=== PATIENT | female | born 1980 | race Caucasian/White ===

== ENCOUNTER → 2021-05-02 15:40 | Outpatient (CLI) | payer OTHER, MEDICAID, SELFPAY ==
[2021-05-02 17:19] LABS: COVID19 -Nasal RAPID Negative (Negative)
== END ==
PROVIDERS: PCP Nurse Practitioner Family; Visit Provider Obstetrics & Gynecology
DX: Z01.812 Encounter for preprocedural laboratory examination (principal); Z20.822 Contact with and (suspected) exposure to COVID-19
CPT/HCPCS: 87635; C9803

== ENCOUNTER 2021-05-03 06:35 | Day surgery (SDC) | payer OTHER, MEDICAID, SELFPAY ==
[2021-04-25 13:52] VITALS: BMI 30.5
[2021-05-03] VITALS (18 sets, daily range): BP systolic 120–146; BP diastolic 63–84; PULSE 62–124; RESP 15–28; TEMP 35.9–37.2; O2SAT 96–100; BMI 30.5
--- NOTE | 2021-05-03 | PATH_ITS ---
[facility] Accession Number: [id number] . 01 Material submitted: . uterus - UTERUS, BILATERAL OVARIES AND EPIPLOIC APPENDICES . 01 Clinical history: . OPB . 02 Diagnosis: Uterus, Bilateral Ovaries and Epiploic Appendices, Laparoscopic Supracervical Hysterectomy, Bilateral Oophorectomy, and Removal of Epiploic Appendices (Weight 54 grams): Secretory endometrium; negative for glandular hyperplasia, cytologic atypia, or malignancy. Myometrium involved by adenomyosis. Uterine serosa with no significant histomorphologic abnormality. Ovaries with patchy stromal thecosis, multiple cystic follicles, and with a benign hemorrhagic corpus luteum cyst (2-15 mm). 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 [facility] 05/06/2021 1622 Local . 02 Electronically signed: . Silvana Hankins MD, Pathologist NPI- [id number] . 01 Gross description: . The specimen is received in formalin, labeled uterus, bilateral ovaries and epiploic appendices and consists of a fragmented uterus weighing 54-gram and measures 11.0 x 9.0 x 6.5 cm in aggregate. A cervix is not identified. The serosa is meeks-pink and smooth. Sectioning reveals a meeks-pink granular endometrium measuring 0.1 cm in thickness. The myometrium is meeks-pink and diffusely trabeculated, measuring up to 2.2 cm in thickness. Also received are two detached ovaries weighing 7 grams, 2.5 x 2.0 x 1.2 cm and 10 grams, 3.6 x 3.0 x 2.0 cm. The external surface is meeks and smooth to cerebriform. Sectioning reveals multiple meeks smooth-walled cysts ranging from 0.2-1.5 cm. No papillary excrescences are identified. Additionally, there are five meeks to meeks-pink cystic nodules ranging from 0.6-1.9 cm. Company [employer] sections are submitted. . A1-A4: Uterus. A5: Smaller ovary, unit support representative section. A6-A7: Larger ovary, unit support representative sections. A8: Company Driver nodules. (EA:[id number]) /MRV 05/04/2021 1148 Local . 02 Pathologist provided ICD-10: N80.0 . 02 CPT . 779205 Performed at: 01 [facility] [address] [place] [address], [place], [place] [id number] MD Devonte Blake MD Phone: [phone] Performed at: 02 [facility] [address] [place] [id number] MD Jes Hoover MD Phone: [phone]
[2021-05-03] MEDS: LACTATED RINGERS 1,000 ML 42 ML IV ×2 (06:55→09:59)
--- NOTE | 2021-05-03 07:39 | PM.PREOP ---
Pre-operative Note COVID-19 COVID-19 status: Negative Result date/Date tested (Pos, Neg/Pending): 05/02/21 Interval Note History & Physical reviewed/Exam performed by Physician: Yes Changes to H&P: No H&P completed within 30 days and has changed as indicated here:: 04/20/21
[2021-05-03] MEDS: LACTATED RINGERS 1,000 ML 100 ML IV ×4 (07:47→20:30)
[2021-05-03] MEDS: CEFAZOLIN 1 GM VIAL 2 GM IV (08:00)
--- NOTE | 2021-05-03 08:23 | SUR.OPER ---
Lithotomy on padded OR bed. [place] Pad Positioner under torso. Head on gel and foam donut, arms padded and tucked at sides. Legs secured in padded yellow fins stirrups.
[2021-05-03] MEDS: BUPIVACAINE 0.25% W/ EPI 30 ML VIAL INJ (08:30)
[2021-05-03 09:17] LABS: Estradiol, Total 56.8 pg/mL
--- NOTE | 2021-05-03 09:30 | P.OP_ITS ---
Operative Date/Time/Diagnoses Date of procedure: 05/03/21 Time of procedure: 09:31 Post-op diagnosis: same Procedure & Clinicians Procedure: Procedures Operation Date: 05/03/21 07:45 Actual Procedure Side Surgeon p Laparoscopic Supracervical Hysterectomy w/ oophorectomy & removal of seven epiploic appendices Leonora Snyder MD Indications: Menometrorrhagia Pelvic pain Infarcted epiploic appendage see seen at previous laparoscopic surgery Surgeon: Leonora Snyder Orthodontic Laboratory Technician: Gucci Vásquez Anesthesia Type: General and Local Operative Notes Findings: Ten week size anteverted uterus Tubes previously removed Normal ovaries Normal appendix Normal liver and gallbladder 7 infarcted epiploic appendices sees in the anterior and posterior cul-de-sac Closure Type: primary Specimen(s): uterus and other (Bilateral ovaries, infarcted epiploic appendices) Applied: catheter (Removed at the end of the case) Estimated blood loss (mL): 5 Blood products transfused: none Procedure in detail: The patient was taken to the operating room where she was placed in the dorsal supine position. After adequate general endotracheal anesthesia was achieved, she was placed in the dorsal lithotomy position, and prepped and draped in the usual sterile fashion. A timeout was performed. A bivalve speculum was placed into the vagina and the anterior lip of the cervix grasped with a single-tooth tenaculum. The cervical os was sequentially dilated until the ZUMI uterine manipulator could pass easily into the endometrial cavity. The single-tooth tenaculum was removed from the anterior lip of the cervix, and the bivalve spec ulum was removed from the vagina. Attention was then turned to the abdomen where 6 mL of quarter percent Marcaine with epinephrine were injected in the umbilical fold. A 5 mm incision was made. The Verhees needle was placed into the peritoneal cavity, and its placement confirmed by aspiration and drop test. The Verhees needle was removed. A 5 mm trocar was placed without difficulty. 2 other incisions were made midway between the pubic symphysis and umbilicus after 5 mL of quarter percent Marcaine with epinephrine were injected. These were 5 mm incisions. Two 5 mm trochars were placed under direct visualization. The right ovary was grasped with an atraumatic grasper. Using the plasma kinetic with settings of 40 W the infundibulopelvic ligament was cauterized and cut. The cornua of the uterus was then grasped with an atraumatic grasper. The round ligament and broad ligament was cauterized and cut with plasma kinetic. Hemostasis was achieved. The bladder flap was created using the plasma kinetic with cautery and cut [facility] across. The uterine arteries on the right side were extensively cauterized with plasma kinetic. All of this was repeated on the left side. The remainder of the bladder flap was created using the plasma kinetic, and the bladder taken down off the lower uterine segment and cervix. Using the L[place]oop, the cervix was amputated from the uterus 2 cm above the uterosacral ligaments, after the ZUMI uterine manipulator was removed from the uterus and a moistened sponge stick was placed into the vagina. There was a small amount of bleeding noted from the cervix and was cauterized with the PlasmaKinetic for hemostasis. 6 mL of quarter percent Marcaine with epinephrine were injected above the pubic symphysis. A 12 mm incision was made. A 12 mm trocar was placed under direct visualization. An Endobag was placed through the suprapubic trocar and the uterus and epiploic appendices were placed into the Endobag. The trocar was removed. The edges of the endobag were brought up through the skin. The James placed into the endobag. The uterus was hand morcellated in approximately 10 pieces. The Endobag was removed from the peritoneal cavity with the epiploic appendage sees in the bottom. The pelvis was copiously irrigated with warm normal saline. No bleeding was noted. The instruments were removed from the abdomen. The CO2 was allowed to escape. The suprapubic incision was closed on the fascia with 0 Vicryl in a running fashion. Two simple interrupted sutures were placed in the subcutaneous layer to reapproximate. All of the incisions were closed with 4-0 Biosyn in a subcuticular fashion. Steri-Strips and Allevyn dressings were placed over the incisions. The moistened sponge stick was removed from the vagina. Sponge, lap, and instrument counts were correct x-2. The patient tolerated the procedure well, was taken to PACU in stable condition. Complications: none Post-operative Condition: stable Disposition: PACU Plan for aftercare: To acute care after recovery
[2021-05-03] MEDS: fentaNYL 100 MCG/2 ML INJ IV ×2 (09:48→10:03)
[2021-05-03] MEDS: ONDANSETRON 4 MG/2 ML INJ IV (09:48)
[2021-05-03] MEDS: HYDROMORPHONE 2 MG INJ IV (09:49)
--- NOTE | 2021-05-03 10:05 | SUR.PHASEI ---
Patient resting quietly in bed , RR even and unlabored. Patient states pain down to 2/10 after first round of IV pain medication. HR still at 105 but patient tells this nurse that her HR can be fast at times. No distress noted. Recheck of abdomen with 4 dressings remains clean, dry and intact. No blood or drainage noted to peripad.
[2021-05-03] MEDS: OXYCODONE/ACETAMINOPHEN 5/325 TABLET 1 TAB PO (10:21)
[2021-05-03] MEDS: ACETAMINOPHEN 325 MG TABLET 650 MG PO ×3 (11:17→21:45)
[2021-05-03] MEDS: ALPRAZolam 0.25 MG TABLET PO (13:02)
[2021-05-03] MEDS: FLUoxetine 20 MG CAPSULE PO ×2 (14:19→20:30)
[2021-05-03] MEDS: KETOROLAC 30 MG/ML VIAL IV ×2 (16:50→21:46)
[2021-05-03] MEDS: DOCUSATE 100 MG CAPSULE 200 MG PO (20:30)
--- NOTE | 2021-05-04 02:40 | PC.NURSE ---
Patient is alert and oriented. Breath sounds CTA with RA sat of 99%. HRR. BP mildly elevated at 145/73. Denies nausea. BT hypoactive but states she is passing flatus. Has been voiding but states she has had frequency and urgency but denies dysuria. Is able to move herself in bed and gets up to bathroom with SBA. Allevyn dressings to abdominal lap sites CDI; abdomen is soft but tender in suprapubic area. Denied pain. Refused SCD's as not able to sleep with them on; reminded to ankle wave and verbalizes understanding. Fall risk score is low.
[2021-05-04] MEDS: KETOROLAC 30 MG/ML VIAL IV (05:00)
[2021-05-04] MEDS: ACETAMINOPHEN 325 MG TABLET 650 MG PO (05:00)
[2021-05-04 05:30] VITALS: BP 121/70; PULSE 70; RESP 16; TEMP 36.8; O2SAT 98
[2021-05-04 06:39] LABS: Add Manual Diff / Slide Review NO; Basophils Absolute Auto 0 /uL (0-100); Basophils Percent Auto 0.2 % (0-2); Eosinophils Absolute Auto 0 /uL (0-450); Eosinophils Percent Auto 0.2 % (2-4); Hematocrit 34.3 % (36-46); Hemoglobin 11.9 g/dL (12.0-16.0); Lymphocytes Absolute Auto 2300 /uL (1100-4500); Lymphocytes Percent Auto 32.2 % (25-40); Mean Corpuscular HGB Conc 34.7 % (30-36); Mean Corpuscular Hemoglobin 31.6 PG (26-34); Monocytes Absolute Auto 500 /uL (0-900); Monocytes Percent Auto 6.9 % (3-14); Neutrophils Absolute Auto 4300 /uL (1500-7000); Neutrophils Percent Auto 60.5 % (50-75); Platelet Count 154 X10^3/uL (150-400); Red Blood Cell Count 3.77 X10^6/uL (4.0-5.2); Red Cell Distribution Width 13.1 % (11.6-14.8); White Blood Cell Count 7.1 X10^3/uL (4.5-11.0)
[2021-05-04 08:29] LABS: Dehydroepiandrosterone Sulfate 65.2 ug/dL (57.3-279.2)
[2021-05-04] MEDS: FLUoxetine 20 MG CAPSULE PO (08:38)
[2021-05-04] MEDS: DOCUSATE 100 MG CAPSULE 200 MG PO (08:38)
--- NOTE | 2021-05-05 05:07 | PM.DS.1 ---
History of Present Illness History of Present Illness Date Patient Seen: 05/04/21 Time Patient Seen: 07:30 Chief complaint: OPB Narrative: Patient is a 40-year-old postop day # 1 status post laparoscopic supracervical hysterectomy with bilateral oophorectomy. Patient did well overnight. No nausea or vomiting. She has voided without the catheter. Her pain is well controlled with Tylenol and Toradol. Minimal vaginal bleeding. Discharge Providers Provider Discharge Date: 05/04/21 Primary care physician: WALT Downey Discharge provider: Leonora Snyder MD Summary Hospital Course Discharge Diagnosis: Menometrorrhagia Pelvic pain Infarcted epiploic appendices Hospital Course: Patient is a 40-year-old who presented on May 04, 2021 for a scheduled laparoscopic supracervical hysterectomy with bilateral oophorectomy. She underwent this procedure without complication. Her postoperative course was unremarkable and on postop day 1. Her pain is well controlled. She has voided without the catheter. No nausea or vomiting. She is ambulating without assistance, and tolerating a diet. She is discharged home to follow up at 2 weeks. Status at Discharge Cognitive/behavioral status at discharge: oriented Functional status at discharge: independent ambulation Overall status at discharge: patient is progressing back to baseline Time Spent with Patient Time spent: Less than 30 minutes Exam Vital Signs (past 8 hours): Oxygen Delivery Method Room Air Oxygen Flow Rate 0 Narrative Exam Narrative: Generally: Patient is sitting up in bed, no acute distress Lungs: Clear to auscultation bilaterally Cardiovascular: Regular rate and rhythm Abdomen: Soft and flat. Good bowel sounds in all 4 quadrants Incisions: Clean dry and intact with bandages Extremities: Negative Homans Objective Labs Result Diagrams: 05/04/21 06:08 Labs: Laboratory Results - last 24 hr 05/03/21 05/04/21 07:40 06:08 WBC 7.1 RBC 3.77 L Hgb 11.9 L Hct 34.3 L MCV 91.0 MCH 31.6 MCHC 34.7 RDW 13.1 Plt Count 154 Neut % (Auto) 60.5 Lymph % (Auto) 32.2 Mckean % (Auto) 6.9 Eos % (Auto) 0.2 L Baso % (Auto) 0.2 Neut # (Auto) 4300 Lymph # (Auto) 2300 Mckean # (Auto) 500 Eos # (Auto) 0 Baso # (Auto) 0 DHEA Sulfate 65.2 PFSH Medical History (Updated 04/25/21 @ 14:14 by Courtney Raya RN) Abnormal Pap smear of cervix (~2004) Astigmatism Bicornate uterus Chicken pox Chronic migraine Deep vein thrombosis (~2005) Depression with anxiety Easy bruisability Fibromyalgia Headache Irregular menstrual cycle Menometrorrhagia Migraines Myopia Painful menstrual periods Rheumatoid arthritis Surgical History (Updated 04/25/21 @ 14:12 by Courtney Raya RN) H/O bilateral salpingectomy H/O reduction mammoplasty History of hysteroscopy Hx of dilation and curettage (~2005) Hx of shoulder surgery S/P appy Social History household members: significant other Smoking Status: Former smoker alcohol intake: current Discharge Assessment & Plan Assessment and Plan Assessment: Assessment: 40-year-old postop day # 1 status post laparoscopic supracervical hysterectomy with bilateral oophorectomy doing very well Plan of Treatment: Discharge to home Follow-up in 2 weeks Patient to call with fever, chills, redness or drainage around the incisions, or bleeding vaginally more than spotting to light Discharge Plan Discharge Plan Patient Disposition: Home Provider Discharge Comment: Call with fever, chills, or redness or drainage around the incisions Expect a small amount of vaginal bleeding Ibuprofen 600 mg every 6 hours as needed Tylenol 650 mg every 6 hours as needed Discharge orders & Medications Discharge Orders: Discharge (Order); Ordered 05/04/21 Ordered By: Leonora Snyder Prescriptions: New tramadol 50 mg tablet 50 mg PO Q4H PRN (Reason: pain) Qty: 20 RF: 0 estradiol 0.5 mg tablet 0.5 mg PO DAILY Qty: 30 RF: 4 Continued fluoxetine 20 mg capsule 20 mg PO TID RF: 0 cholecalciferol (vitamin D3) 50 mcg (2,000 unit) capsule 50 mcg PO DAILY RF: 0 ondansetron 8 mg tablet,disintegrating 8 mg PO Q12H PRN (Reason: Migraines) RF: 0 cyclobenzaprine 10 mg tablet 10 mg PO BEDTIME PRN (Reason: Muscle Spasm) RF: 0 xillslhdqo-rxdkwtklwmons-ywbd 50-325-40 mg capsule 1 cap PO Q6H PRN (Reason: Migraines) RF: 0 ketorolac 30 mg/mL cartridge 30 mg IM Q6-8H PRN (Reason: Migraine Headache) RF: 0 alprazolam 0.25 mg tablet 0.25 mg PO BID PRN (Reason: Anxiety) RF: 0 albuterol sulfate 90 mcg/actuation HFA aerosol inhaler 1 inh inhalation Q4H PRN (Reason: shorteness of breath) RF: 0 sumatriptan succinate 6 mg/0.5 mL solution 6 mg SUBCUT ONCE PRN (Reason: Migraines) RF: 0 aspirin [Aspirin Low Dose] 81 mg Tablet,Delayed Release (Dr/Ec) 81 mg PO DAILY RF: 0 Follow up/Referrals: Leonora Snyder MD [Physician] - 2 Weeks Danuta Edwards ARNP [Primary Care Provider] - Diet/Activity/Treatments Diet: Regular Activity: No intercourse Skin/Wound/Dressing Care Report to your healthcare provider any signs of infection, such as:: chills, fever, increased pain, unusual drainage and unusual redness Dressing: Remove outer pink dressings with attached cause in 3 days after a shower Visit Report/Discharge Packet Instructions: Tramadol (Alternative Therapy), DI for Hysterectomy, DI for Laparoscopy Stand Alone Forms: Surgery Discharge Discharge Data Primary Care Provider: Danuta Edwards Attending Provider: Leonora Snyder Quality VTE Deep Vein Thrombosis/Pulmonary Embolism Present on Admission: No
--- NOTE | 2021-05-09 07:13 | P.DS_ITS ---
History of Present Illness History of Present Illness Date Patient Seen: 05/04/21 Time Patient Seen: 07:40 Chief complaint: OPB Narrative: Patient is a 40-year-old postop day # 1 status post laparoscopic supracervical hysterectomy with bilateral oophorectomy. Patient did well overnight. No nausea or vomiting. She has voided without the catheter. Her pain is well controlled with Tylenol and Toradol. Minimal vaginal bleeding. Discharge Providers Provider Date of admission: May 03, 2021 Discharge Date: 05/04/21 Primary care physician: WALT Downey Discharge provider: Leonora Snyder MD Summary Hospital Course Discharge Diagnosis: Menometrorrhagia Pelvic pain Hospital Course: Patient is a 40-year-old who presented on May 03, 2021 for a scheduled laparoscopic supracervical hysterectomy, bilateral oophorectomy, and removal of infarcted epiploic appendices. She underwent this procedure without complication. Her postoperative course was unremarkable, and on postop day # 1 she was tolerating a diet, voiding without difficulty, pain well controlled, and ambulating without assistance. She is discharged home on postop day # 1. Status at Discharge Cognitive/behavioral status at discharge: oriented Functional status at discharge: independent ambulation Overall status at discharge: patient is progressing back to baseline Time Spent with Patient Time spent: Less than 30 minutes Exam Vital Signs (past 8 hours): Oxygen Delivery Method Room Air Oxygen Flow Rate 0 Narrative Exam Narrative: Generally: Patient lying in bed, no acute distress Lungs: Clear to auscultation bilaterally Cardiovascular: Regular rate and rhythm Abdomen: Soft and flat. Good bowel sounds. Incisions: Clean dry and intact with dressings. Extremities: Negative Homans, no edema Objective Labs Result Diagrams: 05/04/21 06:08 [facility] Medical History (Updated 04/25/21 @ 14:14 by Courtney Raya RN) Abnormal Pap smear of cervix (~2004) Astigmatism Bicornate uterus Chicken pox Chronic migraine Deep vein thrombosis (~2005) Depression with anxiety Easy bruisability Fibromyalgia Headache Irregular menstrual cycle Menometrorrhagia Migraines Myopia Painful menstrual periods Rheumatoid arthritis Surgical History (Updated 04/25/21 @ 14:12 by Courtney Raya RN) H/O bilateral salpingectomy H/O reduction mammoplasty History of hysteroscopy Hx of dilation and curettage (~2005) Hx of shoulder surgery S/P appy Social History household members: significant other Smoking Status: Former smoker alcohol intake: current Discharge Assessment & Plan Assessment and Plan Assessment: Postop day # 1 status post laparoscopic supracervical hysterectomy, bilateral oophorectomy, and removal of infarcted epiploic appendices Patient doing very well Plan of Treatment: Discharge to home Follow-up in 2 weeks Discharge Plan Discharge Plan Patient Disposition: Home Provider Discharge Comment: Call with fever, chills, or redness or drainage around the incisions Expect a small amount of vaginal bleeding Ibuprofen 600 mg every 6 hours as needed Tylenol 650 mg every 6 hours as needed Discharge orders & Medications Discharge Orders: Discharge (Order); Ordered 05/04/21 Ordered By: Leonora Snyder Prescriptions: New tramadol 50 mg tablet 50 mg PO Q4H PRN (Reason: pain) Qty: 20 RF: 0 estradiol 0.5 mg tablet 0.5 mg PO DAILY Qty: 30 RF: 4 Continued fluoxetine 20 mg capsule 20 mg PO TID RF: 0 cholecalciferol (vitamin D3) 50 mcg (2,000 unit) capsule 50 mcg PO DAILY RF: 0 ondansetron 8 mg tablet,disintegrating 8 mg PO Q12H PRN (Reason: Migraines) RF: 0 cyclobenzaprine 10 mg tablet 10 mg PO BEDTIME PRN (Reason: Muscle Spasm) RF: 0 nxubrcwhba-febabazyywmfi-iyji 50-325-40 mg capsule 1 cap PO Q6H PRN (Reason: Migraines) RF: 0 ketorolac 30 mg/mL cartridge 30 mg IM Q6-8H PRN (Reason: Migraine Headache) RF: 0 alprazolam 0.25 mg tablet 0.25 mg PO BID PRN (Reason: Anxiety) RF: 0 albuterol sulfate 90 mcg/actuation HFA aerosol inhaler 1 inh inhalation Q4H PRN (Reason: shorteness of breath) RF: 0 sumatriptan succinate 6 mg/0.5 mL solution 6 mg SUBCUT ONCE PRN (Reason: Migraines) RF: 0 aspirin [Aspirin Low Dose] 81 mg Tablet,Delayed Release (Dr/Ec) 81 mg PO DAILY RF: 0 Follow up/Referrals: Leonora Snyder MD [Physician] - 2 Weeks Danuta Edwards ARNP [Primary Care Provider] - Diet/Activity/Treatments Diet: Regular Activity: No intercourse Skin/Wound/Dressing Care Report to your healthcare provider any signs of infection, such as:: chills, fever, increased pain, unusual drainage and unusual redness Dressing: Remove outer pink dressings with attached cause in 3 days after a shower Visit Report/Discharge Packet Instructions: Tramadol (Alternative Therapy), DI for Hysterectomy, DI for Laparoscopy Stand Alone Forms: Surgery Discharge Discharge Data Primary Care Provider: Danuta Edwards Attending Provider: Leonora Snyder VTE Deep Vein Thrombosis/Pulmonary Embolism Present on Admission: No
== END 2021-05-04 09:15 | disposition home or self-care (01) ==
LOC: OR 06:40 → AC 06:41
PROVIDERS: PCP Nurse Practitioner Family; Referring Provider Obstetrics & Gynecology; Visit Provider Obstetrics & Gynecology
PROC: 0UT94ZL Resection of Uterus, Supracervical, Percutaneous Endoscopic Approach (ICD-10-PCS; CPT 58542; principal; 2021-05-03 07:45)
DX: N92.1 Excessive and frequent menstruation with irregular cycle (principal); Q51.3 Bicornate uterus; K63.89 Other specified diseases of intestine; N83.10 Corpus luteum cyst of ovary, unspecified side; N80.0 Endometriosis of uterus
CPT/HCPCS: 58542; 36415; 82627; 82670; 85025; J0330; J0690; J1100; J1170; J1885; J2405; J2704; J2765; J2795; J3010